=== PATIENT | female | born 1965 | race Two or more races ===

== ENCOUNTER 2018-08-24 05:51 | Day surgery (SDC) | payer OTHER ==
[~2018-08-24 05:51] MED LIST: LOSARTAN-HCTZ1 EACH PO
== END 2018-08-24 15:00 | disposition home or self-care (01) ==
LOC: CIR.AMB 05:51
DX: N95.0 Postmenopausal bleeding (principal)

== ENCOUNTER 2018-08-28 15:11 | Emergency (ER) | payer OTHER ==
[~2018-08-28] VITALS: Ht 162.6 cm; Wt 68.0 kg
== END 2018-08-28 21:43 | disposition home or self-care (01) ==
LOC: ER 15:11
DX: G44.40 Drug-induced headache, not elsewhere classified, not intractable (principal); T41.3X5A Adverse effect of local anesthetics, initial encounter